=== PATIENT | female | born 1985 | race African-American/Black ===

== ENCOUNTER 2024-11-25 08:13 | Outpatient (REF) | payer BC, SELFPAY | END 2024-11-25 08:14 | disposition home or self-care (01) | LOC: HO.HKASLDS 08:13 | PROVIDERS: PCP Internal Medicine; Visit Provider Internal Medicine Rheumatology | DX: Z13.89 Encounter for screening for other disorder (principal) ==

== ENCOUNTER 2024-11-25 08:13 | Outpatient (AMB) | payer BC, SELFPAY ==
--- OUTSIDE RECORDS SUMMARY | 2024-11-25 08:20 | XMS_ITS ---
Author Name [facility] Organization Unknown Care Team Organization Name Specialty Phone Email Start Date End [facility] 06/06/2024
[2024-11-25 08:28] VITALS: BP 130/100; PULSE 86; O2SAT 98; BMI 22.6
--- NOTE | 2024-11-25 08:28 | A.OFFVIS_ITS ---
Vital Signs 11/25/24 08:28 Height 5 ft 1.5 in Weight 121 lb 7.595 oz BMI 22.6 BP 130/100 H Blood Pressure Location Lt brachial Position Sitting Pulse 86 Pulse Source Pulse Oximeter Pulse Oximetry (%) 98 Oxygen Delivery Method Room Air Intake Visit Reasons: sle Intake Note: Patient presents today for a lupus follow up. 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 intermittent 3rd left finger numbness 1-2 x week associated with pain. R lateral hip pain intermittent with activity. She uses an myke for exercises called [employer] with communication with PT. Fatigue and malaise associated with lack of sleep and alcohol. No oral ulcers, dypsnea, pleurisy. Raynaud's has not been active this winter. Hair loss is stable. She has thinning of her hair in the frontal region. No bald spots. In the past she had intralesional steroids given by Dermatology with benefit. She has not seen Dermatology in a while. no active skin lesions. She uses topical triamcinolone on her extremities with active lupus skin lesion and then tacrolimus if needed. She uses topical clobetasol on her scalp when needed for thinning of hair with benefit. Recently treated for UTI with repeat UA with microscopic hematuria (past hx x4-5 of microscopic hematuria). [facility] Medical History (Updated 11/25/24 @ 09:14 by Arnulfo Devries MD) Raynauds disease Cutaneous lupus erythematosus Chondromalacia Family History (Updated 11/03/24 @ 13:05 by Silvia Goldsmith CMA) Mother Osteoarthritis Osteoporosis Gout Social History (Updated 11/03/24 @ 13:07 by Silvia Goldsmith CMA) Household Members: Spouse and Children Alcohol intake: current Alcohol type: wine Comment: once a week Patient Tobacco Use Status: Tobacco use Unknown Current occupational status: employed Current occupation: ESOL INSTRUCTOR fulltime Review of Systems Const All systems reviewed & are unremarkable except as noted in HPI and below Physical Exam Vital Signs: Last Vital Signs Pulse 86 11/25/24 08:28 BP 130/100 H 11/25/24 08:28 Pulse Ox 98 11/25/24 08:28 Oxygen Delivery Method Room Air 11/25/24 08:28 BMI result Body Mass Index 22.6 Const Other: General: Comfortable CVS: RRR Respiratory: clear to auscultation bilaterally. Good respiratory effort Skin: No lesions seen MSK: No tenderness of any joint. Normal range of motion of upper extremities and lower extremities. No synovitis. Tender to palpate right trochanteric bursa. Assessment & Plan Assessment & Plan (1) Discoid lupus erythematosus: Comment: Controlled on topical steroids prescribed by Dermatology. She has increased thinning of her hair in frontal region. Rheumatology history: Suspected diagnosis based on skin biopsy with interface dermatitis. Onset rash 2020 involving eyelids, neck and extremities treated with topical steroids by [facility]. Increase hair loss after of child 2019. VIBHA negative. She has Raynaud's phenomenon. Code(s): L93.0 - Discoid lupus erythematosus Category: Medical Plan: Continue follow-up with [facility] discoid lupus management. She is on topical steroids to control skin lesions as needed. I recommend that she schedule a visit for intralesional steroid injection to scalp due to thinning of hair. Labs to assess systemic lupus disease activity ordered Return to clinic in 6 months (2) Raynauds disease: Comment: Conservatively managed Code(s): I73.00 - Raynaud's syndrome without gangrene Category: Medical Plan: Continue conservative management (3) Hand pain, left: Comment: Intermittent left 3rd PIP pain. Unremarkable exam. Code(s): M79.642 - Pain in left hand Category: Medical Plan: X-ray ordered (4) Numbness of left hand: Comment: Intermittent left 3rd finger in distribution of median nerve. Suspect carpal tunnel syndrome. Code(s): R20.0 - Anesthesia of skin Category: Medical Plan: Wrist brace prescribed EMG ordered Return to clinic in 6 months (5) Trochanteric bursitis, right hip: Comment: Intermittent. Discussed diagnosis and management. Code(s): M70.61 - Trochanteric bursitis, right hip Category: Medical Plan: She will use her [employer] myke and communicate with physical therapist for exercises targeting trochanteric bursitis. If pain does not improve, she will call office for formal physical therapy Return to clinic in 6 months Orders: Orders Sm Sm/HAND BOX COVERER Antibodies Today I73.00 - Raynaud's syndrome without gangrene, L93.0 - Discoid lupus erythematosus Anti DNA DS Antibody Today I73.00 - Raynaud's syndrome without gangrene, L93.0 - Discoid lupus erythematosus Complement C4 Today I73.00 - Raynaud's syndrome without gangrene, L93.0 - Discoid lupus erythematosus Protein Creatinine Ratio, Ur Today I73.00 - Raynaud's syndrome without gangrene, L93.0 - Discoid lupus erythematosus C Reactive Protein Today I73.00 - Raynaud's syndrome without gangrene, L93.0 - Discoid lupus erythematosus Alanine Aminotransferase Today I73.00 - Raynaud's syndrome without gangrene, L93.0 - Discoid lupus erythematosus, Z79.60 - terminal clerk (current) use of unspecified immunomodulators and immunosuppressants Aspartate Amino Transferase Today I73.00 - Raynaud's syndrome without gangrene, L93.0 - Discoid lupus erythematosus, Z79.60 - group home (current) use of unspecified immunomodulators and immunosuppressants Complete Blood Count Auto Diff Today I73.00 - Raynaud's syndrome without gangrene, L93.0 - Discoid lupus erythematosus, Z79.60 - group home (current) use of unspecified immunomodulators and immunosuppressants Creatinine Today I73.00 - Raynaud's syndrome without gangrene, L93.0 - Discoid lupus erythematosus, Z79.60 - group home (current) use of unspecified immunomodulators and immunosuppressants NE electromyogram (EMG) Today R20.0 - Anesthesia of skin Complement C3 Today I73.00 - Raynaud's syndrome without gangrene, L93.0 - Discoid lupus erythematosus UA w Microscopic Today I73.00 - Raynaud's syndrome without gangrene, L93.0 - Discoid lupus erythematosus Erythrocyte Sedimentation Rate Today I73.00 - Raynaud's syndrome without gangrene, L93.0 - Discoid lupus erythematosus VIBHA Reflex Titer and Pattern Today I73.00 - Raynaud's syndrome without gangrene, L93.0 - Discoid lupus erythematosus XR hand LT min 3V Today L93.0 - Discoid lupus erythematosus, M79.642 - Pain in left hand, R20.0 - Anesthesia of skin NE nerve conduction velocity Today R20.0 - Anesthesia of skin Medications: New arm brace (Wrist Brace) Wear at night. As directed Left cockup wrist brace Dx: carpal tunnel syndrome 1 ea 0RF Coding Level of Care Code Est Pt Level 4 (15374) Complex EM visit Add On G2211 Diagnoses Discoid lupus erythematosus L93.0 Raynauds disease I73.00 Hand pain, left M79.642 Numbness of left hand R20.0 Trochanteric bursitis, right hip M70.61 Time Spent (min) 30
== END 2024-11-25 09:09 | disposition home or self-care (01) ==
LOC: HO.RHES 08:13
PROVIDERS: PCP Internal Medicine; Visit Provider Internal Medicine Rheumatology
DX: L93.0 Discoid lupus erythematosus (principal); I73.00 Raynaud's syndrome without gangrene; M79.642 Pain in left hand; R20.0 Anesthesia of skin; M70.61 Trochanteric bursitis, right hip
CPT/HCPCS: 99214

== ENCOUNTER 2024-12-09 11:31 | Outpatient (REF) | payer BC, SELFPAY ==
[2024-12-09 18:11] LABS: MANUAL DIFF FLAG NO
[2024-12-09 18:15] LABS: Appearance Urine Clear; Color Urine Yellow; Glucose Urine UA Negative (Negative); Leukocyte Esterase Urine Negative (Negative); Nitrite Urine Negative (Negative); PH 6.5 (5.0-9.0); Urine Blood Negative (Negative); Urine Ketones Negative (Negative); Urine Protein Negative (Neg-Trace)
[2024-12-09 18:24] LABS: Bacteria Urine None Seen (None Seen); Hyaline Casts Urine 0-2 /LPF (0-2); RBC Urine 0-2 /HPF (0-2); Squamous Epithelial Cell Urine 0-2 /HPF (0-2); WBC Urine 0-5 /HPF (0-5)
[2024-12-09 18:26] LABS: Basophils Percent Auto 0.3 % (0-2); Eosinophils Percent Auto 0.7 % (0-4); Hematocrit 42.2 % (37.0-47.0); Hemoglobin 14.3 g/dl (12.0-16.0); Imm Gran Abs Auto 0.01 X10*3/uL (0.00-0.03); Imm Gran Pct Auto 0.2 % (0.0-0.4); Lymphocytes Absolute Auto 2.6 X10*3/uL (1.2-4.9); Lymphocytes Percent Auto 42.5 % (20-40); Mean Corpuscular HGB Conc 33.9 g/dl (31.0-35.0); Mean Corpuscular Hemoglobin 30.9 pg (27.0-33.0); Mean Corpuscular Volume 91.1 fL (80.0-98.0); Mean Platelet Volume 10.1 fL (9.4-12.3); Monocytes Absolute Auto 0.5 X10*3/uL (0.1-1.2); Monocytes Percent Auto 7.6 % (2-11); Neutrophils Percent Auto 48.7 % (45-73); Platelet Count 252 X10*3/uL (160-400); Red Blood Count 4.63 X10*6/uL (4.20-5.50); White Blood Count 6.1 X10*3/uL (4.8-10.8)
[2024-12-09 18:36] LABS: Alanine Aminotransferase 18 U/L (0-31); Aspartate Amino Transferase 25 U/L (5-31); C Reactive Protein < 0.10 mg/dL (< or = 0.50); Estimated Glomerular Filt Rate > 60
[2024-12-09 19:03] LABS: Creatinine Urine 47.61 mg/dL; Total Protein Urine Random < 7 mg/dL (<12)
[2024-12-09 19:06] LABS: Erythrocyte Sedimentation Rate 8 MM/HR (0-20)
[2024-12-10 11:04] LABS: Complement C3 154 mg/dL (83-193)
[2024-12-10 21:24] LABS: Anti DNA DS Antibody 3 IU/mL; SM/Ribonucleoprotein Ab <1.0 NEG AI (<1.0 NEG); Smith Protein <1.0 NEG AI (<1.0 NEG)
[2024-12-11 14:53] LABS: Anti Nuclear Antibody Screen NEGATIVE (NEGATIVE)
== END 2024-12-09 11:32 | disposition home or self-care (01) ==
LOC: HO.HKASLDS 11:31
PROVIDERS: Visit Provider Internal Medicine Rheumatology
DX: L93.0 Discoid lupus erythematosus (principal); I73.00 Raynaud's syndrome without gangrene; Z79.60 Long term (current) use of unspecified immunomodulators and immunosuppressants
CPT/HCPCS: 36415; 81001; 82565; 82570; 84156; 84450; 84460; 85025; 85652; 86038; 86140; 86160; 86225; 86235